=== PATIENT | female | born 2000 | race Caucasian/White ===

== ENCOUNTER 2022-06-25 06:39 | Day surgery (SDC) | payer OTHER, SELFPAY ==
[2022-06-25] VITALS (13 sets, daily range): BP systolic 108–148; BP diastolic 45–98; PULSE 69–136; RESP 14–24; TEMP 36.6–37; O2SAT 90–97; BMI 39.1
[2022-06-25] MEDS: SODIUM CHLORIDE 0.9 % (FLUSH) 10 ML SYRINGE IVF (06:55)
[2022-06-25] MEDS: LACTATED RINGERS 1000 ML 1,000 ML 100 ML IV (06:55)
--- NOTE | 2022-06-25 07:11 | SUR.PREOP ---
VISUALIZED PATIENTS HOME COVID TEST, RESULTS NEGATIVE
[2022-06-25 07:23] LABS: Ur HCG Qualitative* Negative (Negative)
--- NOTE | 2022-06-25 08:01 | W.ANESCHARGE ---
Anesthesia Charges Start Date/Time Anesthesia Start Date: 06/25/22 Anesthesia Start Time: 07:51 Stop Date/Time Anesthesia Stop Date: 06/25/22 Anesthesia Stop Time: 08:30 Summary Emergency: No
--- NOTE | 2022-06-25 08:42 | W.PM.ENTPROC ---
Procedure Note Date of procedure: 06/25/22 Procedure: Preoperative diagnosis adenoid hypertrophy nasal obstruction eustachian tube dysfunction Postoperative diagnosis same Procedure adenoidectomy Under general endotracheal anesthesia patient was prepped draped usual fashion. McIvor mouth gag was inserted the tongue retracted forward. No submucous cleft was noted. The adenoid pad was removed with suction cautery. The patient on procedure well was taken to recovery in satisfactory condition. Blood loss was less than 5 mL complications none Surgeon: Milad Aguirre MD
--- NOTE | 2022-06-25 08:43 | W.ANESCHARGE ---
Anesthesia Charges Start Date/Time Anesthesia Start Date: 06/25/22 Anesthesia Start Time: 07:51 Stop Date/Time Anesthesia Stop Date: 06/25/22 Anesthesia Stop Time: 08:30 Summary Emergency: No
--- NOTE | 2022-06-25 09:03 | SUR.PHASEI ---
patient met discharge criteria per anesthesia
== END 2022-06-25 10:32 | disposition home or self-care (01) ==
PROVIDERS: Anesthesiology; PCP Family Medicine; Visit Provider Otolaryngology
PROC: (CPT 42831; principal; 2022-06-25 08:00)
DX: J35.2 Hypertrophy of adenoids (principal); J34.89 Other specified disorders of nose and nasal sinuses; H73.899 Other specified disorders of tympanic membrane, unspecified ear
CPT/HCPCS: 42831; 00170; 81025; J1100; J1170; J2250; J2405; J2704; J3010; J7120